=== PATIENT | male | born 1945 | race African-American/Black ===

== ENCOUNTER 2017-06-13 09:56 | Inpatient (IN) ==
[2017-06-13 13:38] LABS: Basophils # 0.1 10*3/uL (0.0-0.2); Basophils % 0.6 % (0.0-0.8); Eosinophils # 0.1 10*3/uL (0.0-0.87); Eosinophils % 1.5 % (0.00-10.9); Hematocrit 36.1 VOL% (42.0-52.0); Hemoglobin 11.8 GM/DL (14.0-18.0); Immature Granulocytes % 0.9 %; Immature Granulocytes Absolute 0.07 #; Lymphocytes # 1.4 10*3/uL (1.4-4.0); Lymphocytes % 17.7 % (21.2-54.2); Mean Corpuscular HGB Conc 32.7 GM/DL (32-36); Mean Corpuscular Hemoglobin 33 PG (27-34); Mean Corpuscular Volume 100.6 FL (87-102); Mean Platelet Volume 10.4 FL (9.6-12.0); Monocytes # 1.1 10*3/uL (0.11-0.8); Monocytes % 13.4 % (1.7-12.7); Neutrophils # 5.4 10*3/uL (1.4-7.4); Neutrophils % 65.9 % (38.7-73.9); Platelet Count 173 T/CUMM (130-400); Red Blood Count 3.59 MC/CUMM (3.8-5.5); Red Cell Distribution Width 14.7 % (9.3-17.3); White Blood Count 8.1 T/CUMM (4-12)
[2017-06-13 14:01] LABS: Alanine Aminotransferase 24 U/L (16-61); Albumin 2.6 G/DL (3.4-5.0); Alkaline Phosphatase 96 U/L (45-117); Aspartate Amino Transferase 39 U/L (0-37); Bilirubin,Total < 0.39 MG/DL (0.2-1.0); Blood Urea Nitrogen 35 MG/DL (7-18); Calcium 8.1 MG/DL (8.5-10.1); Potassium 3.5 MMOL/L (3.5-5.1); Sodium 133 MMOL/L (136-145); Total Protein 7.6 G/DL (6.4-8.3)
[2017-06-13 14:10] LABS: Osmolality,Calculated 297.4 MOS/KG (273-304)
[2017-06-13 14:11] LABS: Glucose 522 MG/DL (74-106)
[2017-06-13] MEDS ORDERED: INSULIN REGULAR 100 UNIT/ML IV STA (14:19)
[2017-06-13] MEDS ORDERED: VANCOMYCIN INJ 1,000 MG in SODIUM CHLORIDE 0.9% 250 ML IV STA (14:19)
[2017-06-13] MEDS ORDERED: VANCOMYCIN 1,000 MG VIAL ONE (14:57)
[2017-06-13] MEDS ORDERED: INSULIN REGULAR 100 UNIT/ML ONE (15:01)
[2017-06-13] MEDS ORDERED: ACETAMINOPHEN 325 MG TABLET PO PRN (15:30)
[2017-06-13] MEDS ORDERED: DEXTROSE 50% 25 GM/50 ML VIAL IV PRN (15:46)
[2017-06-13] MEDS ORDERED: GLUCAGON 1 MG VIAL IM PRN (15:46)
[2017-06-13] MEDS ORDERED: VANCOMYCIN INJ 750 MG in SODIUM CHLORIDE 0.9% 250 ML IV PRN (16:00)
[2017-06-13 16:23] LABS: Lymphocytes 20 % (20-55); Segmented Neutrophils 66 % (50-85); Total Cells Counted 100
[2017-06-13 16:24] LABS: Platelet Estimate Normal
[2017-06-13] MEDS: INSULIN LISPRO 100 UNIT/ML SUBCUT SCH ×2 (17:05→22:18)
[2017-06-13] MEDS ORDERED: VANCOMYCIN INJ 500 MG in SODIUM CHLORIDE 0.9% 250 ML IV PRN (17:30)
[2017-06-13] MEDS ORDERED: PIPERACILLIN/TAZOBACTAM 3.375 MG in SODIUM CHLORIDE 0.9% 100 ML IV SCH (18:00)
[2017-06-13] MEDS ORDERED: INSULIN GLARGINE 100 UNIT/ML SUBCUT SCH (21:00)
[2017-06-14] MEDS: PIPERACILLIN/TAZOBACTAM 3,375 MG in SODIUM CHLORIDE 0.9% 100 ML IV SCH ×2 (05:10→17:27)
[2017-06-14] MEDS ORDERED: DIAZEPAM 2 MG TABLET PO ONE (06:00)
[2017-06-14] MEDS ORDERED: FAMOTIDINE 20 MG TABLET PO ONE (06:00)
[2017-06-14 06:11] LABS: Basophils # 0.1 10*3/uL (0.0-0.2); Basophils % 0.9 % (0.0-0.8); Eosinophils # 0.2 10*3/uL (0.0-0.87); Eosinophils % 2.6 % (0.00-10.9); Hematocrit 37.3 VOL% (42.0-52.0); Hemoglobin 12.6 GM/DL (14.0-18.0); Immature Granulocytes % 1.2 %; Immature Granulocytes Absolute 0.08 #; Lymphocytes # 1.2 10*3/uL (1.4-4.0); Lymphocytes % 17.1 % (21.2-54.2); Mean Corpuscular HGB Conc 33.8 GM/DL (32-36); Mean Corpuscular Hemoglobin 33 PG (27-34); Mean Corpuscular Volume 98.7 FL (87-102); Mean Platelet Volume 10.4 FL (9.6-12.0); Monocytes # 0.8 10*3/uL (0.11-0.8); Monocytes % 10.9 % (1.7-12.7); Neutrophils # 4.6 10*3/uL (1.4-7.4); Neutrophils % 67.3 % (38.7-73.9); Platelet Count 188 T/CUMM (130-400); Red Blood Count 3.78 MC/CUMM (3.8-5.5); Red Cell Distribution Width 14.7 % (9.3-17.3); White Blood Count 6.9 T/CUMM (4-12)
[2017-06-14 06:58] LABS: Eosinophils 4 % (0-10); Lymphocytes 28 % (20-55); Macrocytosis 2+; Platelet Estimate Normal; Segmented Neutrophils 61 % (50-85); Total Cells Counted 100
[2017-06-14 07:06] LABS: Albumin 2.4 G/DL (3.4-5.0); Bilirubin,Total 0.5 MG/DL (0.2-1.0); Calcium 8.3 MG/DL (8.5-10.1); Osmolality,Calculated 296.5 MOS/KG (273-304); Potassium 3.4 MMOL/L (3.5-5.1); Total Protein 7.3 G/DL (6.4-8.3)
[2017-06-14] MEDS: INSULIN LISPRO 100 UNIT/ML SUBCUT SCH ×4 (08:11→21:41)
[2017-06-14] MEDS ORDERED: LIDOCAINE 2%/EPI 20 ML VIAL ONE (11:34)
[2017-06-14] MEDS: SODIUM CHLORIDE 0.9% 250 ML IV SCH (13:50)
[2017-06-14] MEDS ORDERED: PROPOFOL 200 MG/20 ML VIAL IV ONE ×2 (14:38→14:49)
[2017-06-14] MEDS ORDERED: SEVOFLURANE 1 UNIT/15 MINUTE INH ONE ×2 (14:38→14:50)
[2017-06-14] MEDS ORDERED: fentaNYL 100 MCG/2 ML VIAL ONE (14:50)
[2017-06-14] MEDS ORDERED: VANCOMYCIN INJ 1,000 MG in SODIUM CHLORIDE 0.9% 250 ML IV ONE (18:00)
[2017-06-14] MEDS ORDERED: INSULIN GLARGINE 100 UNIT/ML SUBCUT SCH (18:44)
[2017-06-15] MEDS: SODIUM CHLORIDE 0.9% 250 ML IV SCH ×2 (05:11→17:56)
[2017-06-15] MEDS: PIPERACILLIN/TAZOBACTAM 3,375 MG in SODIUM CHLORIDE 0.9% 100 ML IV SCH ×3 (06:17→18:12)
[2017-06-15 06:21] LABS: Basophils # 0.1 10*3/uL (0.0-0.2); Basophils % 0.9 % (0.0-0.8); Eosinophils # 0.3 10*3/uL (0.0-0.87); Eosinophils % 3.3 % (0.00-10.9); Hematocrit 34.7 VOL% (42.0-52.0); Hemoglobin 11.6 GM/DL (14.0-18.0); Immature Granulocytes % 1.3 %; Lymphocytes # 1.4 10*3/uL (1.4-4.0); Lymphocytes % 17.5 % (21.2-54.2); Mean Corpuscular HGB Conc 33.4 GM/DL (32-36); Mean Corpuscular Hemoglobin 33 PG (27-34); Mean Corpuscular Volume 98.9 FL (87-102); Mean Platelet Volume 10.4 FL (9.6-12.0); Monocytes # 0.8 10*3/uL (0.11-0.8); Monocytes % 10.2 % (1.7-12.7); Neutrophils # 5.3 10*3/uL (1.4-7.4); Neutrophils % 66.8 % (38.7-73.9); Platelet Count 175 T/CUMM (130-400); Red Blood Count 3.51 MC/CUMM (3.8-5.5); Red Cell Distribution Width 14.7 % (9.3-17.3); White Blood Count 7.9 T/CUMM (4-12)
[2017-06-15 06:48] LABS: Osmolality,Calculated 279.7 MOS/KG (273-304); Potassium 3.7 MMOL/L (3.5-5.1)
[2017-06-15] MEDS: INSULIN LISPRO 100 UNIT/ML SUBCUT SCH ×4 (08:04→21:05)
[2017-06-15] MEDS: INSULIN GLARGINE 100 UNIT/ML SUBCUT SCH (21:05)
[2017-06-16 05:18] LABS: Basophils # 0.1 10*3/uL (0.0-0.2); Basophils % 0.7 % (0.0-0.8); Eosinophils # 0.3 10*3/uL (0.0-0.87); Eosinophils % 4.7 % (0.00-10.9); Hematocrit 34.7 VOL% (42.0-52.0); Hemoglobin 11.5 GM/DL (14.0-18.0); Immature Granulocytes % 1.4 %; Lymphocytes # 1.8 10*3/uL (1.4-4.0); Lymphocytes % 25.1 % (21.2-54.2); Mean Corpuscular HGB Conc 33.1 GM/DL (32-36); Mean Corpuscular Hemoglobin 33 PG (27-34); Mean Corpuscular Volume 98.6 FL (87-102); Mean Platelet Volume 10.2 FL (9.6-12.0); Monocytes # 0.9 10*3/uL (0.11-0.8); Neutrophils % 56.1 % (38.7-73.9); Platelet Count 180 T/CUMM (130-400); Red Blood Count 3.52 MC/CUMM (3.8-5.5); Red Cell Distribution Width 14.7 % (9.3-17.3); White Blood Count 7.1 T/CUMM (4-12)
[2017-06-16] MEDS: SODIUM CHLORIDE 0.9% 250 ML IV SCH ×2 (05:20→16:54)
[2017-06-16 05:46] LABS: Calcium 7.8 MG/DL (8.5-10.1); Osmolality,Calculated 289.4 MOS/KG (273-304); Potassium 4.1 MMOL/L (3.5-5.1)
[2017-06-16] MEDS: PIPERACILLIN/TAZOBACTAM 3,375 MG in SODIUM CHLORIDE 0.9% 100 ML IV SCH ×2 (06:15→16:47)
[2017-06-16] MEDS: INSULIN LISPRO 100 UNIT/ML SUBCUT SCH ×4 (07:50→21:08)
[2017-06-16] MEDS: INSULIN GLARGINE 100 UNIT/ML SUBCUT SCH (21:08)
[2017-06-17] MEDS: SODIUM CHLORIDE 0.9% 250 ML IV SCH (05:10)
[2017-06-17] MEDS: PIPERACILLIN/TAZOBACTAM 3,375 MG in SODIUM CHLORIDE 0.9% 100 ML IV SCH (05:24)
[2017-06-17 08:12] VITALS: BP 151/87
[2017-06-17] MEDS: INSULIN LISPRO 100 UNIT/ML SUBCUT SCH ×2 (08:50→11:30)
[2017-06-17] MEDS ORDERED: VANCOMYCIN INJ 500 MG in SODIUM CHLORIDE 0.9% 100 ML IV ONE (16:00)
== END 2017-06-17 14:25 | disposition home health service (06) | DRG 629 ==
LOC: N.ED 09:56 → N.EDINP 15:28 → N.3E 16:15
PROVIDERS: ADMIT Hospitalist; ATTEND Hospitalist

== ENCOUNTER 2018-07-04 08:25 | Observation (INO) ==
[2018-07-04 11:01] LABS: Basophils % 0.3 % (0.0-0.8); Eosinophils # 0.1 10*3/uL (0.0-0.87); Eosinophils % 0.7 % (0.00-10.9); Hemoglobin 8.8 GM/DL (14.0-18.0); Immature Granulocytes % 1.7 %; Lymphocytes # 2.1 10*3/uL (1.4-4.0); Lymphocytes % 18.3 % (21.2-54.2); Mean Corpuscular HGB Conc 30.3 GM/DL (32-36); Mean Corpuscular Hemoglobin 32 PG (27-34); Mean Corpuscular Volume 104.3 FL (87-102); Mean Platelet Volume 9.5 FL (9.6-12.0); Monocytes % 8.9 % (1.7-12.7); Neutrophils # 8.1 10*3/uL (1.4-7.4); Neutrophils % 70.1 % (38.7-73.9); Platelet Count 352 T/CUMM (130-400); Red Blood Count 2.78 MC/CUMM (3.8-5.5); Red Cell Distribution Width 15.3 % (9.3-17.3); White Blood Count 11.5 T/CUMM (4-12)
[2018-07-04 11:09] LABS: INR 0.9; PT Patient Result 10.2 SECS
[2018-07-04 11:26] LABS: Alanine Aminotransferase 18 U/L (16-61); Albumin 2.1 G/DL (3.4-5.0); Alkaline Phosphatase 158 U/L (45-117); Aspartate Amino Transferase 23 U/L (0-37); Blood Urea Nitrogen 40 MG/DL (7-18); Calcium 8.3 MG/DL (8.5-10.1); Glucose 141 MG/DL (74-106); Osmolality,Calculated 284.8 MOS/KG (273-304); Potassium 4.3 MMOL/L (3.5-5.1); Sodium 137 MMOL/L (136-145); Total Protein 8.7 G/DL (6.4-8.3); Troponin I < 0.015 NG/ML (0.00-0.045)
[2018-07-04] MEDS ORDERED: DEXTROSE 50% 25 GM/50 ML VIAL IV PRN (11:58)
[2018-07-04] MEDS ORDERED: ACETAMINOPHEN 325 MG TABLET PO PRN (11:58)
[2018-07-04] MEDS ORDERED: PROMETHAZINE 25 MG/1 ML VIAL IM PRN (11:58)
[2018-07-04] MEDS ORDERED: GLUCAGON 1 MG VIAL IM PRN (11:58)
[2018-07-04] MEDS ORDERED: ONDANSETRON 4 MG/2 ML VIAL IV PRN (11:58)
[2018-07-04 12:41] LABS: Thyroid Stimulating Hormone 1.11 uIU/ml (0.358-3.74)
[2018-07-04] MEDS: INSULIN LISPRO 100 UNIT/ML SUBCUT SCH ×2 (18:00→21:50)
[2018-07-04] MEDS: ZALEPLON 5 MG CAPSULE PO PRN (21:48)
[2018-07-04] MEDS: SIMVASTATIN 10 MG TABLET PO SCH (21:49)
[2018-07-04] MEDS: GABAPENTIN 300 MG CAPSULE PO SCH (21:49)
[2018-07-05 05:30] LABS: Basophils % 0.5 % (0.0-0.8); Eosinophils # 0.1 10*3/uL (0.0-0.87); Eosinophils % 1.4 % (0.00-10.9); Hematocrit 29.3 VOL% (42.0-52.0); Hemoglobin 8.5 GM/DL (14.0-18.0); Immature Granulocytes % 1.1 %; Immature Granulocytes Absolute 0.09 #; Lymphocytes % 23.7 % (21.2-54.2); Mean Corpuscular Hemoglobin 31 PG (27-34); Mean Corpuscular Volume 105.8 FL (87-102); Mean Platelet Volume 9.5 FL (9.6-12.0); Monocytes % 11.9 % (1.7-12.7); Neutrophils # 5.2 10*3/uL (1.4-7.4); Neutrophils % 61.4 % (38.7-73.9); Platelet Count 319 T/CUMM (130-400); Red Blood Count 2.77 MC/CUMM (3.8-5.5); Red Cell Distribution Width 15.1 % (9.3-17.3); White Blood Count 8.5 T/CUMM (4-12)
[2018-07-05 05:51] LABS: Albumin 1.9 G/DL (3.4-5.0); Calcium 8.2 MG/DL (8.5-10.1); Osmolality,Calculated 289.8 MOS/KG (273-304); Potassium 4.8 MMOL/L (3.5-5.1); Risk Ratio 2.65; Total Protein 7.7 G/DL (6.4-8.3); VLDL CHOLESTEROL 23.4 MG/DL
[2018-07-05] MEDS: IPRATROPIUM 500 MCG/2.5 ML NEB RESP TX SCH ×4 (07:50→19:42)
[2018-07-05] MEDS ORDERED: HEPARIN 10,000 UNIT/10 ML VIAL IV SCH (09:30)
[2018-07-05] MEDS: PANTOPRAZOLE 40 MG TABLET PO SCH (13:09)
[2018-07-05] MEDS: GABAPENTIN 300 MG CAPSULE PO SCH ×2 (13:09→21:51)
[2018-07-05] MEDS: ASCORBIC ACID 500 MG TABLET PO SCH ×2 (13:09→21:50)
[2018-07-05] MEDS: INSULIN LISPRO 100 UNIT/ML SUBCUT SCH ×4 (13:10→21:50)
[2018-07-05] MEDS: INSULIN NPH/REGULAR 70/30 100 UNIT/ML SUBCUT SCH (13:10)
[2018-07-05] MEDS: CINACALCET 30 MG TABLET PO SCH (13:12)
[2018-07-05] MEDS ORDERED: ZINC OXIDE PASTE 113 GM TUBE TOP PRN (19:06)
[2018-07-05] MEDS: SIMVASTATIN 10 MG TABLET PO SCH (21:51)
[2018-07-05] MEDS: ZALEPLON 5 MG CAPSULE PO PRN (21:55)
[2018-07-06] MEDS: IPRATROPIUM 500 MCG/2.5 ML NEB RESP TX SCH (07:47)
[2018-07-06] MEDS: ASCORBIC ACID 500 MG TABLET PO SCH (09:11)
[2018-07-06] MEDS: CINACALCET 30 MG TABLET PO SCH (09:11)
[2018-07-06] MEDS: GABAPENTIN 300 MG CAPSULE PO SCH (09:14)
[2018-07-06] MEDS: PANTOPRAZOLE 40 MG TABLET PO SCH (09:15)
[2018-07-06] MEDS: INSULIN NPH/REGULAR 70/30 100 UNIT/ML SUBCUT SCH (09:27)
[2018-07-06] MEDS: INSULIN LISPRO 100 UNIT/ML SUBCUT SCH (09:27)
[2018-07-06 11:47] VITALS: BP 110/58
== END 2018-07-06 10:57 ==
LOC: EDBD → EDUNIT# → N.ED 08:25 → N.EDINP 08:25 → SUATTDRO 11:58 → N.TELEN 15:25
PROVIDERS: ADMIT Emergency Medicine; ATTEND Internal Medicine

== ENCOUNTER 2018-09-15 22:51 | Inpatient (IN) ==
[2018-09-16 00:24] LABS: Basophils % 0.4 % (0.0-0.8); Eosinophils # 0.2 10*3/uL (0.0-0.87); Hematocrit 41.6 VOL% (42.0-52.0); Hemoglobin 12.1 GM/DL (14.0-18.0); Immature Granulocytes % 0.5 %; Immature Granulocytes Absolute 0.04 #; Lymphocytes # 1.7 10*3/uL (1.4-4.0); Lymphocytes % 23.8 % (21.2-54.2); Mean Corpuscular HGB Conc 29.1 GM/DL (32-36); Mean Corpuscular Volume 105.1 FL (87-102); Mean Platelet Volume 10.2 FL (9.6-12.0); Neutrophils % 61.3 % (38.7-73.9); Platelet Count 131 T/CUMM (130-400); Red Blood Count 3.96 MC/CUMM (3.8-5.5); Red Cell Distribution Width 16.5 % (9.3-17.3); White Blood Count 7.3 T/CUMM (4-12)
[2018-09-16 03:21] LABS: Alanine Aminotransferase 17 U/L (16-61); Albumin 2.5 G/DL (3.4-5.0); Alkaline Phosphatase 195 U/L (45-117); Aspartate Amino Transferase 19 U/L (0-37); Bilirubin,Total < 0.39 MG/DL (0.2-1.0); Blood Urea Nitrogen 23 MG/DL (7-18); Calcium 8.3 MG/DL (8.5-10.1); Glucose 139 MG/DL (74-106); Osmolality,Calculated 284.4 MOS/KG (273-304); Total Protein 8.3 G/DL (6.4-8.3)
[2018-09-16] MEDS ORDERED: ONDANSETRON 4 MG/2 ML VIAL IV PRN (04:51)
[2018-09-16] MEDS ORDERED: GLUCAGON 1 MG VIAL IM PRN (04:51)
[2018-09-16] MEDS ORDERED: DEXTROSE 50% 25 GM/50 ML SYRINGE IV PRN (04:51)
[2018-09-16 05:15] LABS: Sedimentation Rate-Westergren 9 MM/HR (0-20)
[2018-09-16] MEDS ORDERED: PIPERACILLIN/TAZOBACTAM 3,375 MG in SODIUM CHLORIDE 0.9% 100 ML IV SCH (05:30)
[2018-09-16] MEDS: INSULIN REGULAR 100 UNIT/ML SUBCUT SCH ×3 (07:59→16:35)
[2018-09-16] MEDS ORDERED: ENOXAPARIN 30 MG/0.3 ML SYRINGE SUBCUT SCH (08:00)
[2018-09-16] MEDS ORDERED: PANTOPRAZOLE 40 MG TABLET PO SCH (09:00)
[2018-09-16 16:53] VITALS: BP 145/84
== END 2018-09-16 17:15 | DRG 299 ==
LOC: N.ED 22:51 → N.EDINP 09-16 04:51 → N.3E 09-16 05:40
PROVIDERS: ADMIT Internal Medicine; ATTEND Internal Medicine

== ENCOUNTER 2019-02-12 09:06 | Inpatient (IN) ==
[2019-02-12] MEDS ORDERED: NALOXONE 0.4 MG/ML VIAL ONE (09:10)
[2019-02-12] MEDS ORDERED: ONDANSETRON 4 MG/2 ML VIAL IV STA (09:15)
[2019-02-12] MEDS ORDERED: SODIUM CHLORIDE 0.9% 500 ML IV STA ×4 (09:16→13:23)
[2019-02-12] MEDS ORDERED: NALOXONE 0.4 MG/ML VIAL IV STA (09:17)
[2019-02-12 09:55] LABS: ABG Base Excess 2.4 MMOL/L (-2.5-2.5); ABG HCO3 26.6 MMOL/L (20-26); ABG PCO2 39.5 MM HG (35-48); ABG PH 7.437 (7.35-7.45)
[2019-02-12 09:56] LABS: Allen Test Positive
[2019-02-12] MEDS ORDERED: ETOMIDATE 20 MG/10 ML VIAL IV ONE (10:10)
[2019-02-12] MEDS ORDERED: ROCURONIUM 100 MG/10 ML VIAL IV ONE (10:10)
[2019-02-12 10:52] LABS: Basophils % 0.2 % (0.0-0.8); Eosinophils % 0.1 % (0.00-10.9); Hematocrit 29.8 VOL% (42.0-52.0); Hemoglobin 9.5 GM/DL (14.0-18.0); Immature Granulocytes % 0.9 %; Immature Granulocytes Absolute 0.12 #; Lymphocytes # 1.2 10*3/uL (1.4-4.0); Lymphocytes % 8.3 % (21.2-54.2); Mean Corpuscular HGB Conc 31.9 GM/DL (32-36); Mean Corpuscular Volume 105.3 FL (87-102); Mean Platelet Volume 9.8 FL (9.6-12.0); Monocytes % 9.2 % (1.7-12.7); NRBC # 0.03 10*3/uL; Neutrophils % 81.3 % (38.7-73.9); Platelet Count 171 T/CUMM (130-400); Red Blood Count 2.83 MC/CUMM (3.8-5.5); Red Cell Distribution Width 16.3 % (9.3-17.3); White Blood Count 14.1 T/CUMM (4-12)
[2019-02-12 10:52] LABS: Barbiturates Screen,Urine Negative (Negative); Benzodiazepines Screen,Urine Negative (Negative); Cannabinoid Screen,Urine Negative (Negative); Opiate Screen,Urine Negative (Negative); Phencyclidine Screen,Urine Negative (Negative)
[2019-02-12 11:07] LABS: Alanine Aminotransferase 23 U/L (16-61); Albumin 2.6 G/DL (3.4-5.0); Alkaline Phosphatase 113 U/L (45-117); Aspartate Amino Transferase 45 U/L (0-37); Blood Urea Nitrogen 23 MG/DL (7-18); Calcium 7.6 MG/DL (8.5-10.1); Estimated Glom Filtration Rate 8 ML/MIN; Glucose 199 MG/DL (74-106); Osmolality,Calculated 288.4 MOS/KG (273-304); Total Protein 7.3 G/DL (6.4-8.3)
[2019-02-12 11:09] LABS: INR 1.1; PT Patient Result 11.6 SECS (9.6-12.2); Partial Thromboplastin Time 28.7 SECS (20.8-36.0)
[2019-02-12] MEDS ORDERED: ALBUTEROL 2.5 MG/3 ML NEB RESP TX PRN (14:19)
[2019-02-12] MEDS ORDERED: ACETAMINOPHEN 325 MG TABLET PO PRN (14:19)
[2019-02-12] MEDS ORDERED: GLUCAGON 1 MG VIAL IM PRN (14:49)
[2019-02-12] MEDS ORDERED: DEXTROSE 50% 25 GM/50 ML VIAL IV PRN (14:49)
[2019-02-12 16:49] LABS: Folate 5.3 NG/ML (5.4-24.0)
[2019-02-12] MEDS: HEPARIN 5,000 UNIT/1 ML VIAL SUBCUT SCH (17:56)
[2019-02-12] MEDS: cefTRIAXone 1,000 MG in SYRINGE 1 EACH IV SCH (17:58)
[2019-02-12] MEDS: SEVELAMER CARBONATE 800 MG TABLET PO SCH (17:58)
[2019-02-12] MEDS: INSULIN NPH/REGULAR 70/30 100 UNIT/ML SUBCUT SCH (17:58)
[2019-02-12] MEDS: INSULIN REGULAR 100 UNIT/ML SUBCUT SCH ×3 (17:58→21:02)
[2019-02-12] MEDS: SIMVASTATIN 20 MG TABLET PO SCH (21:02)
[2019-02-13] MEDS: HEPARIN 5,000 UNIT/1 ML VIAL SUBCUT SCH ×2 (05:14→21:34)
[2019-02-13 05:33] LABS: Basophils % 0.3 % (0.0-0.8); Eosinophils # 0.2 10*3/uL (0.0-0.87); Hemoglobin 9.1 GM/DL (14.0-18.0); Immature Granulocytes % 0.6 %; Immature Granulocytes Absolute 0.09 #; Lymphocytes # 1.2 10*3/uL (1.4-4.0); Lymphocytes % 8.1 % (21.2-54.2); Mean Corpuscular HGB Conc 31.4 GM/DL (32-36); Mean Corpuscular Volume 107.4 FL (87-102); Mean Platelet Volume 10.2 FL (9.6-12.0); Monocytes % 7.5 % (1.7-12.7); Neutrophils % 82.5 % (38.7-73.9); Platelet Count 170 T/CUMM (130-400); Red Cell Distribution Width 16.6 % (9.3-17.3); White Blood Count 15.3 T/CUMM (4-12)
[2019-02-13 06:03] LABS: Alanine Aminotransferase 20 U/L (16-61); Albumin 2.4 G/DL (3.4-5.0); Alkaline Phosphatase 105 U/L (45-117); Aspartate Amino Transferase 67 U/L (0-37); Bilirubin,Total < 0.39 MG/DL (0.2-1.0); Blood Urea Nitrogen 33 MG/DL (7-18); Calcium 7.9 MG/DL (8.5-10.1); Estimated Glom Filtration Rate 7 ML/MIN; Glucose 122 MG/DL (74-106); HDL Cholesterol 33 MG/DL (40-60); Osmolality,Calculated 284.5 MOS/KG (273-304); Risk Ratio 2.58; Total Protein 7.5 G/DL (6.4-8.3); Triglycerides 123 MG/DL (2-150); VLDL CHOLESTEROL 24.6 MG/DL
[2019-02-13 06:11] LABS: Anisocytosis 1+; Band Neutrophils 2 % (0-10); Eosinophils 2 % (0-10); Lymphocytes 7 % (20-55); Macrocytosis 1+; Platelet Estimate Normal; Segmented Neutrophils 83 % (50-85); Total Cells Counted 100
[2019-02-13] MEDS: INSULIN REGULAR 100 UNIT/ML SUBCUT SCH ×4 (08:33→20:32)
[2019-02-13] MEDS: INSULIN NPH/REGULAR 70/30 100 UNIT/ML SUBCUT SCH ×2 (08:33→19:56)
[2019-02-13] MEDS: SEVELAMER CARBONATE 800 MG TABLET PO SCH ×3 (08:33→21:34)
[2019-02-13] MEDS: PANTOPRAZOLE 40 MG TABLET PO SCH (08:33)
[2019-02-13] MEDS ORDERED: HEPARIN 1,000 UNIT/1 ML VIAL ONE (14:10)
[2019-02-13] MEDS: cefTRIAXone 1,000 MG in SYRINGE 1 EACH IV SCH (21:34)
[2019-02-13] MEDS: SIMVASTATIN 20 MG TABLET PO SCH (21:34)
[2019-02-14] MEDS: HEPARIN 5,000 UNIT/1 ML VIAL SUBCUT SCH ×2 (05:33→16:56)
[2019-02-14] MEDS: INSULIN REGULAR 100 UNIT/ML SUBCUT SCH ×4 (07:25→21:48)
[2019-02-14] MEDS: INSULIN NPH/REGULAR 70/30 100 UNIT/ML SUBCUT SCH (08:02)
[2019-02-14] MEDS: SEVELAMER CARBONATE 800 MG TABLET PO SCH ×3 (09:50→18:36)
[2019-02-14] MEDS: PANTOPRAZOLE 40 MG TABLET PO SCH ×2 (09:50→09:59)
[2019-02-14 10:31] LABS: Basophils % 0.2 % (0.0-0.8); Eosinophils # 0.2 10*3/uL (0.0-0.87); Eosinophils % 1.7 % (0.00-10.9); Hematocrit 29.5 VOL% (42.0-52.0); Hemoglobin 9.4 GM/DL (14.0-18.0); Immature Granulocytes % 0.7 %; Immature Granulocytes Absolute 0.09 #; Lymphocytes # 1.4 10*3/uL (1.4-4.0); Lymphocytes % 10.5 % (21.2-54.2); Mean Corpuscular HGB Conc 31.9 GM/DL (32-36); Mean Corpuscular Volume 106.9 FL (87-102); Monocytes % 5.5 % (1.7-12.7); Neutrophils % 81.4 % (38.7-73.9); Platelet Count 164 T/CUMM (130-400); Red Blood Count 2.76 MC/CUMM (3.8-5.5); Red Cell Distribution Width 16.5 % (9.3-17.3); White Blood Count 13.2 T/CUMM (4-12)
[2019-02-14] MEDS ORDERED: INSULIN NPH/REGULAR 70/30 100 UNIT/ML SUBCUT SCH ×2 (12:52)
[2019-02-14] MEDS ORDERED: DEXTROSE 10% 250 ML IV ONE (15:59)
[2019-02-14] MEDS ORDERED: DEXTROSE 10% 250 ML BAG IV ONE (16:09)
[2019-02-14] MEDS ORDERED: DEXTROSE 10% 1,000 ML IV SCH (16:30)
[2019-02-14] MEDS: cefTRIAXone 1,000 MG in SYRINGE 1 EACH IV SCH (16:56)
[2019-02-14] MEDS: SIMVASTATIN 20 MG TABLET PO SCH (21:49)
[2019-02-15] MEDS: HEPARIN 5,000 UNIT/1 ML VIAL SUBCUT SCH ×2 (03:56→16:35)
[2019-02-15 05:38] LABS: Basophils % 0.4 % (0.0-0.8); Eosinophils # 0.2 10*3/uL (0.0-0.87); Eosinophils % 1.8 % (0.00-10.9); Hematocrit 27.5 VOL% (42.0-52.0); Hemoglobin 8.6 GM/DL (14.0-18.0); Immature Granulocytes % 0.7 %; Immature Granulocytes Absolute 0.07 #; Lymphocytes # 1.7 10*3/uL (1.4-4.0); Lymphocytes % 15.6 % (21.2-54.2); Mean Corpuscular HGB Conc 31.3 GM/DL (32-36); Mean Corpuscular Volume 107.8 FL (87-102); Mean Platelet Volume 10.2 FL (9.6-12.0); Monocytes % 6.8 % (1.7-12.7); Neutrophils % 74.7 % (38.7-73.9); Platelet Count 154 T/CUMM (130-400); Red Blood Count 2.55 MC/CUMM (3.8-5.5); Red Cell Distribution Width 16.2 % (9.3-17.3); White Blood Count 10.7 T/CUMM (4-12)
[2019-02-15 05:53] LABS: Calcium 8.1 MG/DL (8.5-10.1); Osmolality,Calculated 282.1 MOS/KG (273-304)
[2019-02-15] MEDS: INSULIN REGULAR 100 UNIT/ML SUBCUT SCH ×3 (07:43→17:51)
[2019-02-15] MEDS: DEXTROSE 10% 1,000 ML IV SCH (11:20)
[2019-02-15] MEDS: PANTOPRAZOLE 40 MG TABLET PO SCH (11:51)
[2019-02-15] MEDS: SEVELAMER CARBONATE 800 MG TABLET PO SCH ×3 (11:51→17:17)
[2019-02-15] MEDS: GABAPENTIN 300 MG CAPSULE PO SCH (13:57)
[2019-02-15] MEDS: cefTRIAXone 1,000 MG in SYRINGE 1 EACH IV SCH (16:35)
[2019-02-15] MEDS ORDERED: MORPHINE 4 MG/1 ML VIAL IV PRN (17:15)
[2019-02-16] MEDS: INSULIN REGULAR 100 UNIT/ML SUBCUT SCH ×5 (02:09→21:19)
[2019-02-16] MEDS: SIMVASTATIN 20 MG TABLET PO SCH ×2 (02:10→21:17)
[2019-02-16] MEDS: HEPARIN 5,000 UNIT/1 ML VIAL SUBCUT SCH (05:06)
[2019-02-16 05:20] LABS: Basophils % 0.4 % (0.0-0.8); Eosinophils # 0.2 10*3/uL (0.0-0.87); Hematocrit 31.9 VOL% (42.0-52.0); Hemoglobin 10.1 GM/DL (14.0-18.0); Immature Granulocytes % 0.6 %; Immature Granulocytes Absolute 0.05 #; Lymphocytes # 1.2 10*3/uL (1.4-4.0); Lymphocytes % 15.9 % (21.2-54.2); Mean Corpuscular HGB Conc 31.7 GM/DL (32-36); Mean Corpuscular Volume 105.3 FL (87-102); Mean Platelet Volume 10.2 FL (9.6-12.0); Monocytes % 8.3 % (1.7-12.7); Neutrophils % 71.8 % (38.7-73.9); Platelet Count 162 T/CUMM (130-400); Red Blood Count 3.03 MC/CUMM (3.8-5.5); Red Cell Distribution Width 15.9 % (9.3-17.3); White Blood Count 7.8 T/CUMM (4-12)
[2019-02-16 05:53] LABS: Calcium 8.2 MG/DL (8.5-10.1)
[2019-02-16] MEDS: cefTRIAXone 1,000 MG in SYRINGE 1 EACH IV SCH (08:14)
[2019-02-16] MEDS ORDERED: SODIUM CHLORIDE 0.9% 1,000 ML IV SCH (09:00)
[2019-02-16] MEDS: SEVELAMER CARBONATE 800 MG TABLET PO SCH ×3 (09:41→16:29)
[2019-02-16] MEDS: GABAPENTIN 300 MG CAPSULE PO SCH (09:42)
[2019-02-16] MEDS: PANTOPRAZOLE 40 MG TABLET PO SCH ×2 (09:45→18:39)
[2019-02-16] MEDS: METOCLOPRAMIDE 10 MG/10 ML UDCUP PO SCH ×3 (10:35→21:18)
[2019-02-16] MEDS ORDERED: LIDOCAINE 100 MG/5 ML SYRINGE ONE (12:00)
[2019-02-16] MEDS ORDERED: PROPOFOL 200 MG/20 ML VIAL IV ONE (12:00)
[2019-02-16] MEDS: DEXTROSE 10% 1,000 ML IV SCH (16:24)
[2019-02-17] MEDS: METOCLOPRAMIDE 10 MG/10 ML UDCUP PO SCH ×3 (08:06→16:51)
[2019-02-17] MEDS: SEVELAMER CARBONATE 800 MG TABLET PO SCH ×3 (08:07→16:51)
[2019-02-17] MEDS: PANTOPRAZOLE 40 MG TABLET PO SCH (08:08)
[2019-02-17] MEDS: GABAPENTIN 300 MG CAPSULE PO SCH (08:08)
[2019-02-17] MEDS: cefTRIAXone 1,000 MG in SYRINGE 1 EACH IV SCH (08:09)
[2019-02-17] MEDS: INSULIN REGULAR 100 UNIT/ML SUBCUT SCH ×3 (09:03→16:51)
[2019-02-17 16:16] VITALS: BP 105/49
== END 2019-02-17 17:02 | disposition home health service (06) | DRG 907 ==
LOC: MERGE 09:06 → N.ED 09:06 → EDBD 09:06 → N.EDINP 13:41 → SUATTDRO 13:41 → N.ICU 14:21 → N.2E 02-13 16:11
PROVIDERS: ADMIT Internal Medicine Cardiovascular Disease; ATTEND Internal Medicine

== ENCOUNTER 2019-03-03 00:49 | Observation (INO) ==
[2019-03-03 01:19] LABS: Basophils # 0.1 10*3/uL (0.0-0.2); Basophils % 0.9 % (0.0-0.8); Eosinophils % 0.5 % (0.00-10.9); Hematocrit 30.2 VOL% (42.0-52.0); Hemoglobin 9.2 GM/DL (14.0-18.0); Immature Granulocytes % 0.5 %; Immature Granulocytes Absolute 0.04 #; Lymphocytes % 13.7 % (21.2-54.2); Mean Corpuscular HGB Conc 30.5 GM/DL (32-36); Mean Platelet Volume 9.2 FL (9.6-12.0); Monocytes % 13.2 % (1.7-12.7); Neutrophils % 71.2 % (38.7-73.9); Platelet Count 249 T/CUMM (130-400); Red Blood Count 2.85 MC/CUMM (3.8-5.5); White Blood Count 7.4 T/CUMM (4-12)
[2019-03-03 01:34] LABS: Calcium 8.8 MG/DL (8.5-10.1); Osmolality,Calculated 292.4 MOS/KG (273-304)
[2019-03-03] MEDS ORDERED: DEXTROSE 50% 25 GM/50 ML VIAL IV PRN (03:29)
[2019-03-03] MEDS ORDERED: ONDANSETRON 4 MG/2 ML VIAL IV PRN (03:29)
[2019-03-03] MEDS ORDERED: ACETAMINOPHEN 325 MG TABLET PO PRN (03:29)
[2019-03-03] MEDS ORDERED: GLUCAGON 1 MG VIAL IM PRN (03:29)
[2019-03-03] MEDS ORDERED: LOPERAMIDE 2 MG CAPSULE PO PRN (03:35)
[2019-03-03] MEDS: METOCLOPRAMIDE 10 MG/10 ML UDCUP PO SCH ×4 (04:26→21:49)
[2019-03-03] MEDS: GABAPENTIN 600 MG TABLET PO SCH ×2 (09:06→20:16)
[2019-03-03] MEDS: SEVELAMER CARBONATE 800 MG TABLET PO SCH ×3 (09:06→17:14)
[2019-03-03] MEDS: PANTOPRAZOLE 40 MG TABLET PO SCH (09:06)
[2019-03-03] MEDS ORDERED: TUBERCULIN SKIN TEST 0.1 ML SYRINGE INTRADERM ONE (15:17)
[2019-03-03] MEDS: SIMVASTATIN 10 MG TABLET PO SCH (20:17)
[2019-03-04] MEDS: METOCLOPRAMIDE 10 MG/10 ML UDCUP PO SCH ×4 (03:33→21:10)
[2019-03-04 05:35] LABS: Calcium 8.3 MG/DL (8.5-10.1); Osmolality,Calculated 289.8 MOS/KG (273-304)
[2019-03-04] MEDS: GABAPENTIN 600 MG TABLET PO SCH ×2 (08:35→21:10)
[2019-03-04] MEDS: PANTOPRAZOLE 40 MG TABLET PO SCH (08:35)
[2019-03-04] MEDS: SEVELAMER CARBONATE 800 MG TABLET PO SCH ×3 (08:35→18:33)
[2019-03-04] MEDS ORDERED: HEPARIN 1,000 UNIT/1 ML VIAL ONE ×2 (13:40→16:29)
[2019-03-04] MEDS: amLODIPine 5 MG TABLET PO SCH (18:33)
[2019-03-04] MEDS: INSULIN GLARGINE 100 UNIT/ML SUBCUT SCH (21:10)
[2019-03-04] MEDS: SIMVASTATIN 10 MG TABLET PO SCH (21:10)
[2019-03-05] MEDS: METOCLOPRAMIDE 10 MG/10 ML UDCUP PO SCH ×4 (04:05→21:13)
[2019-03-05 04:49] LABS: Calcium 8.7 MG/DL (8.5-10.1); Osmolality,Calculated 298.3 MOS/KG (273-304)
[2019-03-05] MEDS ORDERED: fentaNYL 100 MCG/2 ML VIAL IV ONE (08:00)
[2019-03-05] MEDS ORDERED: MIDAZOLAM 2 MG/2 ML VIAL IV ONE (08:00)
[2019-03-05] MEDS: SEVELAMER CARBONATE 800 MG TABLET PO SCH ×3 (09:11→18:27)
[2019-03-05] MEDS: GABAPENTIN 600 MG TABLET PO SCH ×2 (09:12→21:13)
[2019-03-05] MEDS: PANTOPRAZOLE 40 MG TABLET PO SCH (10:00)
[2019-03-05] MEDS: amLODIPine 5 MG TABLET PO SCH (10:26)
[2019-03-05] MEDS ORDERED: HEPARIN LOCK FLUSH 500 UNIT/5 ML SYRINGE IV ONE (13:25)
[2019-03-05] MEDS ORDERED: LIDOCAINE 1%/EPI INJ 20 ML VIAL ONE (13:25)
[2019-03-05] MEDS ORDERED: MIDAZOLAM 2 MG/2 ML VIAL ONE (13:25)
[2019-03-05] MEDS ORDERED: fentaNYL 100 MCG/2 ML VIAL ONE (13:25)
[2019-03-05] MEDS ORDERED: ceFAZolin 1,000 MG VIAL ONE (13:42)
[2019-03-05] MEDS ORDERED: ceFAZolin 1,000 MG in SYRINGE 1 EACH IV ONE (13:42)
[2019-03-05] MEDS ORDERED: TISSUE ADHESIVE 1 EACH APPLICATOR TOP ONE (13:48)
[2019-03-05] MEDS ORDERED: HEPARIN LOCK FLUSH 500 UNIT/5 ML SYRINGE IV PRN (15:08)
[2019-03-05] MEDS ORDERED: HEPARIN 10,000 UNIT/10 ML VIAL IV SCH (16:30)
[2019-03-05] MEDS: SIMVASTATIN 10 MG TABLET PO SCH (21:13)
[2019-03-05] MEDS: INSULIN GLARGINE 100 UNIT/ML SUBCUT SCH (21:13)
[2019-03-06] MEDS: METOCLOPRAMIDE 10 MG/10 ML UDCUP PO SCH ×2 (04:29→09:50)
[2019-03-06 05:31] LABS: Basophils # 0.1 10*3/uL (0.0-0.2); Basophils % 0.8 % (0.0-0.8); Eosinophils # 0.2 10*3/uL (0.0-0.87); Eosinophils % 2.6 % (0.00-10.9); Hematocrit 27.4 VOL% (42.0-52.0); Hemoglobin 8.4 GM/DL (14.0-18.0); Immature Granulocytes % 0.8 %; Immature Granulocytes Absolute 0.05 #; Lymphocytes # 1.5 10*3/uL (1.4-4.0); Lymphocytes % 24.8 % (21.2-54.2); Mean Corpuscular HGB Conc 30.7 GM/DL (32-36); Mean Corpuscular Volume 105.4 FL (87-102); Mean Platelet Volume 9.5 FL (9.6-12.0); Monocytes % 12.1 % (1.7-12.7); Neutrophils % 58.9 % (38.7-73.9); Platelet Count 220 T/CUMM (130-400); Red Cell Distribution Width 13.9 % (9.3-17.3); White Blood Count 6.1 T/CUMM (4-12)
[2019-03-06 05:46] LABS: Calcium 8.3 MG/DL (8.5-10.1); Osmolality,Calculated 282.5 MOS/KG (273-304)
[2019-03-06] MEDS: amLODIPine 5 MG TABLET PO SCH (08:17)
[2019-03-06] MEDS: GABAPENTIN 600 MG TABLET PO SCH (08:27)
[2019-03-06] MEDS: SEVELAMER CARBONATE 800 MG TABLET PO SCH ×2 (08:27→12:52)
[2019-03-06] MEDS: PANTOPRAZOLE 40 MG TABLET PO SCH (08:27)
[2019-03-06 12:56] VITALS: BP 107/67
== END 2019-03-06 14:49 ==
LOC: EDBD → EDUNIT# → N.ED 00:49 → N.EDINP 00:49 → N.5E 03:13
PROVIDERS: ADMIT Hospitalist; ATTEND Hospitalist

== ENCOUNTER 2019-03-09 15:24 | Observation (INO) ==
[2019-03-09] MEDS ORDERED: PANTOPRAZOLE 40 MG VIAL IV STA (16:20)
[2019-03-09] MEDS ORDERED: ONDANSETRON 4 MG/2 ML VIAL IV STA (16:20)
[2019-03-09 17:18] LABS: Basophils % 0.4 % (0.0-0.8); Eosinophils # 0.2 10*3/uL (0.0-0.87); Eosinophils % 2.2 % (0.00-10.9); Hematocrit 29.1 VOL% (42.0-52.0); Immature Granulocytes % 0.8 %; Immature Granulocytes Absolute 0.06 #; Lymphocytes # 1.4 10*3/uL (1.4-4.0); Lymphocytes % 19.3 % (21.2-54.2); Mean Corpuscular HGB Conc 30.9 GM/DL (32-36); Mean Corpuscular Volume 103.6 FL (87-102); Mean Platelet Volume 9.2 FL (9.6-12.0); Monocytes % 12.9 % (1.7-12.7); Neutrophils % 64.4 % (38.7-73.9); Platelet Count 193 T/CUMM (130-400); Red Blood Count 2.81 MC/CUMM (3.8-5.5); Red Cell Distribution Width 13.9 % (9.3-17.3); White Blood Count 7.1 T/CUMM (4-12)
[2019-03-09 17:29] LABS: PT Patient Result 10.5 SECS (9.6-12.2)
[2019-03-09 17:41] LABS: Alanine Aminotransferase < 6 U/L (16-61); Albumin 2.4 G/DL (3.4-5.0); Alkaline Phosphatase 92 U/L (45-117); Aspartate Amino Transferase 12 U/L (0-37); Bilirubin,Total < 0.39 MG/DL (0.2-1.0); Blood Urea Nitrogen 18 MG/DL (7-18); Calcium 8.4 MG/DL (8.5-10.1); Estimated Glom Filtration Rate 12 ML/MIN; Glucose 179 MG/DL (74-106); Osmolality,Calculated 286.3 MOS/KG (273-304); Total Protein 8.3 G/DL (6.4-8.3)
[2019-03-09] MEDS ORDERED: ACETAMINOPHEN 325 MG TABLET PO PRN (18:36)
[2019-03-09] MEDS ORDERED: ZALEPLON 5 MG CAPSULE PO PRN (18:36)
[2019-03-09] MEDS ORDERED: ONDANSETRON 4 MG/2 ML VIAL IV PRN (18:38)
[2019-03-09] MEDS ORDERED: DEXTROSE 50% 25 GM/50 ML VIAL IV PRN (18:43)
[2019-03-09] MEDS ORDERED: GLUCAGON 1 MG VIAL IM PRN (18:43)
[2019-03-09] MEDS ORDERED: INSULIN GLARGINE 100 UNIT/ML SUBCUT SCH (21:00)
[2019-03-09] MEDS ORDERED: SIMVASTATIN 20 MG TABLET PO SCH (21:00)
[2019-03-09] MEDS: GABAPENTIN 600 MG TABLET PO SCH (22:25)
[2019-03-09] MEDS: INSULIN REGULAR 100 UNIT/ML SUBCUT SCH (22:26)
[2019-03-10 01:21] LABS: Calcium 7.8 MG/DL (8.5-10.1); Osmolality,Calculated 287.3 MOS/KG (273-304)
[2019-03-10 01:26] LABS: Basophils % 0.6 % (0.0-0.8); Eosinophils # 0.2 10*3/uL (0.0-0.87); Eosinophils % 2.9 % (0.00-10.9); Hematocrit 25.4 VOL% (42.0-52.0); Hemoglobin 7.8 GM/DL (14.0-18.0); Immature Granulocytes % 1.1 %; Immature Granulocytes Absolute 0.07 #; Lymphocytes # 1.4 10*3/uL (1.4-4.0); Lymphocytes % 21.8 % (21.2-54.2); Mean Corpuscular HGB Conc 30.7 GM/DL (32-36); Mean Corpuscular Volume 105.8 FL (87-102); Mean Platelet Volume 9.4 FL (9.6-12.0); Monocytes % 14.4 % (1.7-12.7); Neutrophils % 59.2 % (38.7-73.9); Platelet Count 192 T/CUMM (130-400); White Blood Count 6.5 T/CUMM (4-12)
[2019-03-10 07:02] LABS: Hematocrit 27.3 VOL% (42.0-52.0); Hemoglobin 8.5 GM/DL (14.0-18.0)
[2019-03-10] MEDS: INSULIN REGULAR 100 UNIT/ML SUBCUT SCH ×3 (08:50→16:26)
[2019-03-10] MEDS ORDERED: amLODIPine 5 MG TABLET PO SCH (09:00)
[2019-03-10] MEDS ORDERED: POTASSIUM CHLORIDE 20 MEQ/15 ML UDCUP PO SCH (09:00)
[2019-03-10] MEDS ORDERED: PANTOPRAZOLE 40 MG VIAL IV SCH (09:00)
[2019-03-10] MEDS: GABAPENTIN 600 MG TABLET PO SCH (09:09)
[2019-03-10] MEDS: SEVELAMER CARBONATE 800 MG TABLET PO SCH ×3 (09:09→15:35)
[2019-03-10 13:50] LABS: Hematocrit 26.2 VOL% (42.0-52.0); Hemoglobin 8.1 GM/DL (14.0-18.0)
[2019-03-10 16:20] VITALS: BP 154/86
== END 2019-03-10 17:48 ==
LOC: EDUNIT# → N.EDINP 15:24 → N.ED 15:24 → N.5E 19:23
PROVIDERS: ADMIT Internal Medicine Geriatric Medicine; ATTEND Internal Medicine Geriatric Medicine

== ENCOUNTER 2019-03-13 09:23 | Inpatient (IN) ==
[2019-03-13 09:49] LABS: Basophils # 0.1 10*3/uL (0.0-0.2); Basophils % 0.4 % (0.0-0.8); Eosinophils # 0.2 10*3/uL (0.0-0.87); Eosinophils % 1.1 % (0.00-10.9); Hematocrit 28.1 VOL% (42.0-52.0); Hemoglobin 8.8 GM/DL (14.0-18.0); Immature Granulocytes % 1.4 %; Immature Granulocytes Absolute 0.19 #; Lymphocytes # 1.3 10*3/uL (1.4-4.0); Mean Corpuscular HGB Conc 31.3 GM/DL (32-36); Mean Corpuscular Volume 104.5 FL (87-102); Mean Platelet Volume 9.5 FL (9.6-12.0); Monocytes % 8.1 % (1.7-12.7); Platelet Count 215 T/CUMM (130-400); Red Blood Count 2.69 MC/CUMM (3.8-5.5); Red Cell Distribution Width 14.1 % (9.3-17.3)
[2019-03-13 10:13] LABS: Calcium 8.5 MG/DL (8.5-10.1); Osmolality,Calculated 285.4 MOS/KG (273-304)
[2019-03-13] MEDS ORDERED: SODIUM CHLORIDE 0.9% 500 ML IV STA (12:02)
[2019-03-13] MEDS ORDERED: cefTRIAXone 1,000 MG in SODIUM CHLORIDE 0.9% 100 ML IV STA (12:05)
[2019-03-13] MEDS ORDERED: GLUCAGON 1 MG VIAL IM PRN (12:48)
[2019-03-13] MEDS ORDERED: DEXTROSE 50% 25 GM/50 ML VIAL IV PRN (12:48)
[2019-03-13] MEDS ORDERED: ACETAMINOPHEN 325 MG TABLET PO PRN (12:48)
[2019-03-14] MEDS: FLUTICASONE 50 MCG NASAL SPRAY 16 GM BOTTLE BOTH NARES SCH (10:51)
[2019-03-14] MEDS: CHOLESTYRAMINE 4 GM PACK PO SCH ×2 (10:51→21:10)
[2019-03-14] MEDS: INSULIN REGULAR 100 UNIT/ML SUBCUT SCH ×2 (16:57→20:57)
[2019-03-14] MEDS ORDERED: SEVELAMER CARBONATE 800 MG TABLET PO SCH (17:00)
[2019-03-14] MEDS ORDERED: SIMVASTATIN 10 MG TABLET PO SCH (21:00)
[2019-03-14] MEDS ORDERED: GABAPENTIN 600 MG TABLET PO SCH (21:00)
[2019-03-14 23:45] LABS: ABG HCO3 24.3 MMOL/L (20-26); ABG Oxygen Saturation 89.3 % (95-100); ABG PCO2 29.5 MM HG (35-48); ABG PH 7.493 (7.35-7.45); ABG PO2 52.9 MM HG (80-95); ABG TCO2 20.9 MMOL/L (23-27)
[2019-03-15 00:07] LABS: Basophils # 0.1 10*3/uL (0.0-0.2); Basophils % 0.4 % (0.0-0.8); Eosinophils % 0.1 % (0.00-10.9); Hematocrit 28.1 VOL% (42.0-52.0); Hemoglobin 8.7 GM/DL (14.0-18.0); Immature Granulocytes % 0.9 %; Immature Granulocytes Absolute 0.12 #; Lymphocytes % 7.2 % (21.2-54.2); Mean Corpuscular Volume 104.5 FL (87-102); Mean Platelet Volume 9.4 FL (9.6-12.0); Monocytes % 7.7 % (1.7-12.7); Neutrophils % 83.7 % (38.7-73.9); Platelet Count 201 T/CUMM (130-400); Red Blood Count 2.69 MC/CUMM (3.8-5.5); Red Cell Distribution Width 14.4 % (9.3-17.3); White Blood Count 13.9 T/CUMM (4-12)
[2019-03-15 00:28] LABS: Alanine Aminotransferase 13 U/L (16-61); Albumin 2.4 G/DL (3.4-5.0); Alkaline Phosphatase 103 U/L (45-117); Aspartate Amino Transferase 19 U/L (0-37); Bilirubin,Total < 0.39 MG/DL (0.2-1.0); Blood Urea Nitrogen 34 MG/DL (7-18); Estimated Glom Filtration Rate 7 ML/MIN; Glucose 250 MG/DL (74-106); Total Protein 8.3 G/DL (6.4-8.3)
[2019-03-15] MEDS: PIPERACILLIN/TAZOBACTAM 3,375 MG in SODIUM CHLORIDE 0.9% 100 ML IV SCH ×2 (01:20→12:50)
[2019-03-15 04:54] LABS: Basophils # 0.1 10*3/uL (0.0-0.2); Basophils % 0.4 % (0.0-0.8); Eosinophils % 0.1 % (0.00-10.9); Hematocrit 25.8 VOL% (42.0-52.0); Hemoglobin 7.8 GM/DL (14.0-18.0); Immature Granulocytes % 0.7 %; Immature Granulocytes Absolute 0.09 #; Lymphocytes # 1.4 10*3/uL (1.4-4.0); Lymphocytes % 11.4 % (21.2-54.2); Mean Corpuscular HGB Conc 30.2 GM/DL (32-36); Mean Corpuscular Volume 104.9 FL (87-102); Mean Platelet Volume 9.8 FL (9.6-12.0); Monocytes % 9.8 % (1.7-12.7); Neutrophils % 77.6 % (38.7-73.9); Platelet Count 171 T/CUMM (130-400); Red Blood Count 2.46 MC/CUMM (3.8-5.5); Red Cell Distribution Width 14.4 % (9.3-17.3); White Blood Count 12.1 T/CUMM (4-12)
[2019-03-15] MEDS ORDERED: PHENYLEPHRINE DRIP 40 MG/250 ML PREMIX IV PRN (05:11)
[2019-03-15 05:14] LABS: Calcium 8.7 MG/DL (8.5-10.1); Osmolality,Calculated 287.4 MOS/KG (273-304)
[2019-03-15] MEDS: INSULIN REGULAR 100 UNIT/ML SUBCUT SCH ×4 (08:09→21:50)
[2019-03-15] MEDS: FLUTICASONE 50 MCG NASAL SPRAY 16 GM BOTTLE BOTH NARES SCH (08:52)
[2019-03-15] MEDS ORDERED: PANTOPRAZOLE 40 MG TABLET PO SCH (09:00)
[2019-03-16 05:50] LABS: Basophils # 0.1 10*3/uL (0.0-0.2); Basophils % 0.7 % (0.0-0.8); Eosinophils # 0.2 10*3/uL (0.0-0.87); Hematocrit 28.4 VOL% (42.0-52.0); Hemoglobin 8.8 GM/DL (14.0-18.0); Immature Granulocytes % 0.7 %; Immature Granulocytes Absolute 0.05 #; Lymphocytes # 0.9 10*3/uL (1.4-4.0); Lymphocytes % 12.9 % (21.2-54.2); Mean Corpuscular Volume 103.6 FL (87-102); Mean Platelet Volume 9.8 FL (9.6-12.0); Monocytes % 10.9 % (1.7-12.7); Neutrophils % 71.8 % (38.7-73.9); Platelet Count 191 T/CUMM (130-400); Red Blood Count 2.74 MC/CUMM (3.8-5.5); Red Cell Distribution Width 14.3 % (9.3-17.3)
[2019-03-16 06:06] LABS: Hypochromasia 1+; Ovalocytes Slight; Platelet Estimate Adequate
[2019-03-16 06:19] LABS: Calcium 8.9 MG/DL (8.5-10.1); Osmolality,Calculated 287.5 MOS/KG (273-304)
[2019-03-16] MEDS: INSULIN REGULAR 100 UNIT/ML SUBCUT SCH ×4 (08:24→21:09)
[2019-03-16] MEDS: FLUTICASONE 50 MCG NASAL SPRAY 16 GM BOTTLE BOTH NARES SCH (08:54)
[2019-03-16] MEDS ORDERED: HEPARIN 10,000 UNIT/10 ML VIAL IV SCH (11:30)
[2019-03-16 21:18] VITALS: BP 129/59
== END 2019-03-16 21:20 | disposition home or self-care (01) | DRG 312 ==
LOC: EDUNIT# → EDBD → N.ED 09:23 → N.EDINP 09:23 → N.TELEN 14:22 → N.ICU 03-15 00:04 → SUATTDRO 03-15 08:59 → N.TELES 03-15 18:07
PROVIDERS: ADMIT Internal Medicine Geriatric Medicine; ATTEND Internal Medicine